=== PATIENT | male | born 1985 | race Caucasian/White ===

== ENCOUNTER 2023-02-20 12:42 | Emergency (ER) | payer MEDICAID ==
[~2023-02-20] VITALS: Ht 167.6 cm; Wt 79.4 kg
[2023-02-20 13:16] VITALS: BP 116/74; PULSE 88; RESP 18; TEMP 97.5; O2SAT 99
[2023-02-20 13:28] VITALS: O2SAT 99
[2023-02-20] MEDS ORDERED: NACL 0.9% 1,000 ML IV ONE (14:10)
[2023-02-20 15:05] LABS: BASOPHILS % (AUTO) 0.4 % (0.0-2.0); EOSINOPHILS % (AUTO) 0.3 % (0.0-4.0); HEMATOCRIT 41.7 % (36-52); HEMOGLOBIN 14.2 g/dL (12.0-18.0); LYMPHOCYTES # (AUTO) 1.5 K/uL (2.0-11.5); MEAN CORPUSCULAR HEMOGLOBIN 29 pg (27-31); MEAN CORPUSCULAR HGB CONC 34 g/dL (33-37); MEAN CORPUSCULAR VOLUME 85.5 fL (80-94); MONOCYTES # (AUTO) 0.3 K/uL (0.8-1.0); MONOCYTES % (AUTO) 4.6 % (1.7-9.3); NEUTROPHILS # (AUTO) 4.6 K/uL (1.8-7.7); NEUTROPHILS % (AUTO) 71.7 % (42.2-75.2); PLATELET COUNT (AUTO) 375 K/uL (140-450); RED BLOOD CELL COUNT(AUTO) 4.87 MIL/uL (4.20-6.10); RED CELL DISTRIBUTION WIDTH 13.4 % (11.6-13.7); WHITE BLOOD COUNT (AUTO) 6.3 K/uL (4.8-10.8)
[2023-02-20 15:35] LABS: AMPHETAMINE, URINE NEGATIVE ng/ml (NEG <=1000); BARBITURATE, URINE NEGATIVE ng/ml (NEG <=200); BENZODIAZEPINE, URINE NEGATIVE ng/mL (NEG <=200); CANNABINOID, URINE NEGATIVE ng/mL (NEG <=50); COCAINE, URINE NEGATIVE ng/mL (NEG <=300); OPIATE, URINE NEGATIVE ng/mL (NEG <=2000); PHENCYCLIDINE SCREEN,URINE NEGATIVE ng/mL (NEG <=25)
[2023-02-20 15:40] LABS: ALBUMIN 4.3 g/dL (3.4-5.0); ANION GAP 16.2 (8-16); CALCIUM 9.4 mg/dL (8.5-10.1); CARBON DIOXIDE 26.8 mmol/L (21-32); TOTAL BILIRUBIN 0.2 mg/dL (0.0-1.0); TOTAL PROTEIN, SERUM 8.1 g/dL (6.4-8.2)
[2023-02-20 17:04] VITALS: BP 116/74; PULSE 88; RESP 18; TEMP 97.5; O2SAT 99
== END 2023-02-20 17:05 | disposition home or self-care (01) ==
LOC: MED 12:42
DX: F10.129 Alcohol abuse with intoxication, unspecified (principal); E86.0 Dehydration; R51.9 Headache, unspecified; E11.9 Type 2 diabetes mellitus without complications; I10 Essential (primary) hypertension; E78.5 Hyperlipidemia, unspecified; F17.210 Nicotine dependence, cigarettes, uncomplicated
CPT/HCPCS: 36415; 80053; 80305; 81002; 82948; 85025; 96360; 99283; G0482; J7030

== ENCOUNTER 2023-09-15 16:00 | Emergency (ER) | payer SELFPAY ==
[~2023-09-15] VITALS: Ht 167.6 cm; Wt 74.8 kg
[2023-09-15 16:03] VITALS: BP 124/80; PULSE 84; RESP 18; TEMP 98.6; O2SAT 9
[2023-09-15 16:43] LABS: BASOPHILS % (AUTO) 0.4 % (0.0-2.0); EOSINOPHILS # (AUTO) 0.3 K/uL (0-0.4); EOSINOPHILS % (AUTO) 3.9 % (0.0-4.0); HEMATOCRIT 38.8 % (36-52); HEMOGLOBIN 13.4 g/dL (12.0-18.0); LYMPHOCYTES # (AUTO) 2.5 K/uL (2.0-11.5); LYMPHOCYTES % (AUTO) 36.2 % (20.5-51.1); MEAN CORPUSCULAR HEMOGLOBIN 29 pg (27-31); MEAN CORPUSCULAR HGB CONC 34 g/dL (33-37); MEAN CORPUSCULAR VOLUME 85.4 fL (80-94); MONOCYTES # (AUTO) 0.6 K/uL (0.8-1.0); MONOCYTES % (AUTO) 8.1 % (1.7-9.3); NEUTROPHILS # (AUTO) 3.6 K/uL (1.8-7.7); NEUTROPHILS % (AUTO) 51.4 % (42.2-75.2); PLATELET COUNT (AUTO) 314 K/uL (140-450); RED BLOOD CELL COUNT(AUTO) 4.55 MIL/uL (4.20-6.10); RED CELL DISTRIBUTION WIDTH 13.2 % (11.6-13.7)
[2023-09-15 16:54] LABS: ANION GAP 14.1 (8-16); CALCIUM 8.8 mg/dL (8.5-10.1); CARBON DIOXIDE 25.7 mmol/L (21-32); POTASSIUM 3.8 mmol/L (3.5-5.1)
[2023-09-15 16:58] LABS: INR 1.11 (0.8-1.2); PARTIAL THROMBOPLASTIN TIME 31.3 secs (22-35.6); PROTHROMBIN TIME 11.6 secs (10.8-13.4)
[2023-09-15] MEDS: NACL 0.9% 1,000 ML IV ONE (18:31)
[2023-09-15 18:58] VITALS: BP 110/86; PULSE 82; RESP 18; TEMP 98; O2SAT 98
== END 2023-09-15 18:56 | disposition home or self-care (01) ==
LOC: MED 16:00
DX: R42 Dizziness and giddiness (principal); E11.9 Type 2 diabetes mellitus without complications; I10 Essential (primary) hypertension; E78.00 Pure hypercholesterolemia, unspecified
CPT/HCPCS: 36415; 71045; 80048; 83880; 84484; 85025; 85610; 85730; 93005; 96360; 99285; J7030